=== PATIENT | female | born 1965 | race African-American/Black ===

== ENCOUNTER 2016-10-27 03:45 | Emergency (ER) | payer BC, OTHER ==
--- NOTE | 2016-10-27 03:51 | PDOC ---
History of Present Illness - General Chief Complaint: Back Pain Stated Complaint: BACK PAIN Time Seen by Provider: 10/27/16 03:51 History Source: Patient Exam Limitations: No Limitations - History of Present Illness Initial Comments: 10/27/16 03:58 This is a 51-year-old female comes in complaining of moderately severe mid back pain. Patient said she has been working out a lot and thinks that may have triggered the pain. Patient denies history of similar pain in the past. Patient denies any numbness or weakness. Patient denies any radiation down her legs. Patient otherwise says that she took Motrin 2 tablets without relief. PAST MEDICAL HISTORY: no significant history PAST SURGICAL HISTORY: no significant history FAMILY HISTORY: no pertinant history SOCIAL HISTORY: Pt lives with family and is employed. MEDICATIONS: reviewed ALLERGIES: As per nursing notes Review of Systems General: No fevers or chills, no weakness, no weight loss HEENT: No change in vision. No sore throat,. No ear pain CardioVascular: No chest pain or shortness of breath Respiratory:No cough, or wheezing. Gastrointestinal: no nausea, vomitting, diarrhea or constipation, No rectal bleeding Genitourinary: No dysuria, hematuria, or frequency Musculoskeletal: No joint or muscle pain or swelling Neurologic: No headache, vertigo, dizziness or loss of consciousness Psychiatric: nor depression Skin: No rashes or easy bruising Endocrine: no increased thirst or abnormal weight change Allergic: no skin or latex allergy All other systems reviewed and normal GENERAL: The patient is awake, alert, and fully oriented, in no acute distress. HEAD: Normal with no signs of trauma. EYES: Pupils equal, round and reactive to light, extraocular movements intact, sclera anicteric, conjunctiva clear. Back: There is pain and spasm on palpation of the right mid back paraspinal area. EXTREMITIES: Normal range of motion, no edema. NEUROLOGICAL: Normal speech, normal gait. PSYCH: Normal mood, normal affect. SKIN: Warm, Dry, normal turgor, no rashes or lesions noted. Assessment and plan: This is a year-old female with new-onset O mid back pain likely secondary to her at the gym. Patient was told to rest and given Toradol and Flexeril here in the emergency room. Patient also given prescriptions for Naprosyn and Flexeril. Patient discharged will follow-up with her primary care DrAdriano if not better in one week. Past History - Past Medical History Allergies/Adverse Reactions: Allergies Allergy/AdvReac Type Severity Reaction Status Date / Time No Known Allergies Allergy Verified 07/31/14 16:24 Home Medications: Ambulatory Orders Atorvastatin Ca [Lipitor] 40 mg PO DAILY 02/15/12 Verapamil HCl 300 mg PO DAILY 02/15/12 Cyclobenzaprine HCl [Flexeril 10 mg] 10 mg PO BID PRN #60 tablet 10/27/16 Naproxen [Naprosyn -] 500 mg PO BID #60 tablet 10/27/16 Cardiac Disorders: Yes (MVP) HTN: Yes Hypercholesterolemia: Yes - Surgical History Abdominal Surgery: Yes (BTL, HERNIA REPAIR) - Immunization History Immunization Up to Date: No - Psycho/Social/Smoking Cessation Hx Anxiety: No Suicidal Ideation: No Smoking Status: Yes Smoking History: Never smoked Have you smoked in the past 12 months: No Number of Cigarettes Smoked Daily: 0 Hx Alcohol Use: No Drug/Substance Use Hx: No Substance Use Type: None *DC/Admit/Observation/Transfer Diagnosis at time of Disposition: Back pain Qualifiers: Back pain location: back pain in unspecified location Chronicity: acute Back pain laterality: right Qualified Code(s): M54.9 - Dorsalgia, unspecified - Discharge Dispostion Disposition: HOME Condition at time of disposition: Good - Prescriptions Prescriptions: Cyclobenzaprine HCl [Flexeril 10 mg] 10 mg PO BID PRN #60 tablet PRN Reason: Back Pain Naproxen [Naprosyn -] 500 mg PO BID #60 tablet - Patient Instructions Additional Instructions: For the pain take Naprosyn 1 tablet twice a day with food don't take on an empty stomach. In addition to the Naprosyn take Flexeril one tablet twice a day. The Flexeril will make you drowsy so do not take it if you have to work, drive or do anything that requires your concentration. Return to the emergency department immediately with ANY new, persistent or worsening symptoms. Continue any medications as previously prescribed by your physician. You should follow up with your primary doctor if you are not better in one week . Please make sure your doctor reviews the results of your emergency evaluation. Thank you for coming to the Emergency Department today for your care. It was a pleasure to see you today. Please note that your evaluation is INCOMPLETE until you follow-up with your doctor.
[2016-10-27 03:52] VITALS: BP 137/88; PULSE 59; TEMP 98; BMI 26.6
[2016-10-27] MEDS ORDERED: KETOROLAC TROMETHAMINE 60 MG/2 ML VIAL ONE (03:55)
[2016-10-27] MEDS ORDERED: CYCLOBENZAPRINE HCL 10 MG TABLET (FP) PO ONE (03:55)
[2016-10-27] MEDS ORDERED: CYCLOBENZAPRINE HCL 10 MG TABLET (FP) ONE (03:55)
[2016-10-27] MEDS ORDERED: KETOROLAC TROMETHAMINE 60 MG/2 ML VIAL IM ONE (03:55)
== END 2016-10-27 04:06 | disposition home or self-care (01) ==
LOC: FER 03:45
PROC: 3E0233Z Introduction of Anti-inflammatory into Muscle, Percutaneous Approach (ICD-10-PCS; principal; 2016-10-27)
DX: M54.9 Dorsalgia, unspecified (principal); I10 Essential (primary) hypertension; E78.00 Pure hypercholesterolemia, unspecified; I34.1 Nonrheumatic mitral (valve) prolapse
CPT/HCPCS: 99282-25

== ENCOUNTER 2016-12-01 09:03 | Emergency (ER) | payer BC, OTHER ==
[2016-12-01 09:13] VITALS: BP 146/74; PULSE 68; TEMP 98; BMI 33.8
--- NOTE | 2016-12-01 10:18 | PDOC ---
History of Present Illness - General Chief Complaint: Foreign Body (FB) Stated Complaint: RING STUCK ON FINGER Time Seen by Provider: 12/01/16 09:39 - History of Present Illness Initial Comments: 12/01/16 10:16 CHIEF COMPLAINT: HISTORY OF PRESENT ILLNESS: No recent travel or sick contacts. PAST MEDICAL HISTORY: Denies past medical history FAMILY HISTORY: Denies SOCIAL HISTORY: Lives at home with ____. Occupation: . Denies tobacco, alcohol, illicit drug use. SURGICAL HISTORY: Denies ALLERGIES: No known drug allergies REVIEW OF SYSTEMS General/Constitutional: Denies fever or chills. Denies weakness, weight change. HEENT: Denies change in vision. Denies ear pain or discharge. Denies sore throat. Cardiovascular: Denies chest pain or shortness of breath. Respiratory: Denies cough, wheezing, or hemoptysis. Gastrointestinal: Denies nausea, vomiting, diarrhea or constipation. Denies rectal bleeding. Genitourinary: Denies dysuria, frequency, or change in urination. Musculoskeletal: Denies joint or muscle swelling or pain. Denies neck or back pain. Skin and breasts: Denies rash or easy bruising. Neurologic: Denies headache, vertigo, loss of consciousness, or loss of sensation. Psychiatric: Denies depression or anxiety. Endocrine: Denies increased thirst. Denies abnormal weight change. Hematologic/Lymphatic: Denies anemia, easy bleeding, or history of blood clots. Allergic/Immunologic: Denies hives or skin allergy. Denies latex allergy. PHYSICAL EXAM General Appearance: Well-appearing, appropriately dressed. No apparent distress , no intoxication. HEENT: EOMI, PERRLA, normal ENT inspection, normal voice, TMs normal, pharynx normal. No conjunctival pallor. No photophobia, scleral icterus. Neck: Supple. Trachea midline. No tenderness, rigidity, carotid bruit, stridor , lymphadenopathy, or thyromegaly. Respiratory/Chest: Lungs CTAB. No shortness of breath, chest tenderness, respiratory distress, accessory muscle use. No crackles, rales, rhonchi, stridor , wheezing, dullness Cardiovascular: RRR. S1, S2. No JVD, murmur, bradycardia, tachycardia. Vascular Pulses: Dorsalis-Pedis (R): 2+, Dorsalis-Pedis (L): 2+ Gastrointestinal/Abdominal: Normal bowel sounds. Abdomen soft, non-distended. No tenderness or rebound tenderness. No organomegaly, pulsatile mass, guarding , hernia, hepatomegaly, splenomegaly. Lymphatic: No adenopathy, tenderness. Musculoskeletal/Extremities: Normal inspection. FROM of all extremities, normal capillary refill. Pelvis Stable. No CVA tenderness. No tenderness to extremities, pedal edema, swelling, erythema or deformity. Integumentary: Appropriate color, dry, warm. No cyanosis, erythema, jaundice or rash Neurologic: environmental communications specialist II-XII intact. Fully oriented, alert. Appropriate mood/affect. Motor strength 5/5. No appreciable EOM palsy, facial droop or sensory deficit. Past History - Past Medical History Allergies/Adverse Reactions: Allergies Allergy/AdvReac Type Severity Reaction Status Date / Time No Known Allergies Allergy Verified 12/01/16 09:11 Home Medications: Ambulatory Orders NK [No Known Home Medication] 12/01/16 Cardiac Disorders: Yes (MVP) HTN: Yes Hypercholesterolemia: Yes - Surgical History Abdominal Surgery: Yes (BTL, HERNIA REPAIR) - Immunization History Immunization Up to Date: No - Psycho/Social/Smoking Cessation Hx Anxiety: No Suicidal Ideation: No Smoking Status: Yes Smoking History: Former smoker Have you smoked in the past 12 months: No Number of Cigarettes Smoked Daily: 0 If you are a former smoker, when did you quit?: 2005 Information on smoking cessation initiated: No Hx Alcohol Use: No Drug/Substance Use Hx: No Substance Use Type: None *Physical Exam - Vital Signs Last Vital Signs Temp Pulse Resp BP Pulse Ox 98.0 F 68 18 146/74 100 12/01/16 09:11 12/01/16 09:11 12/01/16 09:11 12/01/16 09:11 12/01/16 09:11 *DC/Admit/Observation/Transfer Diagnosis at time of Disposition: Tight ring on finger - Discharge Dispostion Disposition: HOME Condition at time of disposition: Improved - Referrals Referrals: Steve Nolasco MD [Primary Care Provider] - - Patient Instructions Additional Instructions: Please do not put your ring back on your finger until it has been sized appropriately. If your finger continues to swell, becomes more painful, or becomes red or warm, please return to the ER.
== END 2016-12-01 10:26 | disposition home or self-care (01) ==
LOC: JERFT 09:03
DX: S60.449A External constriction of unspecified finger, initial encounter (principal); W49.04XA Ring or other jewelry causing external constriction, initial encounter; Y93.89 Activity, other specified; Y92.038 Other place in apartment as the place of occurrence of the external cause
CPT/HCPCS: 99281-25

== ENCOUNTER 2019-11-16 19:43 | Emergency (ER) | payer BC, OTHER ==
[2019-11-16 19:55] VITALS: BP 154/90; PULSE 66; TEMP 97.2; BMI 34.7
[2019-11-16] MEDS ORDERED: IBUPROFEN 600 MG TABLET (FP) PO ONE ×2 (20:05→20:20)
--- NOTE | 2019-11-16 20:08 | PDOC ---
History of Present Illness - General Chief Complaint: Back Pain Stated Complaint: FALL Time Seen by Provider: 11/16/19 20:00 History Source: Patient Exam Limitations: No Limitations - History of Present Illness Initial Comments: 11/16/19 20:06 CHIEF COMPLAINT: Lower back pain HISTORY OF PRESENT ILLNESS: 54-year-old female denies medical history presents emergency department for evaluation of left wrist, left shoulder, left hip and left lower back pain status post slip and fall while in a supermarket today. Patient reports after she slipped she noticed that the floor was wet. She reports slipping feet first falling backwards landing on an outstretched left arm and onto her left hip. She reports initially she had minimal pain but as time is gone on the pain has gotten worse. She has not taken anything for the pain at this time. She reports the pain is nonradiating and has no neurosensory deficits. Patient denies any incontinence of bladder or bowel, urinary ret ention, saddle anesthesia, foot drop, history of IV drug use or history of cancer. REVIEW OF SYSTEMS: GENERAL: Afebrile, denies any weakness RESPIRATORY: No cough, wheezing, or hemoptysis. CARDIAC: No chest pain or shortness of breath MUSCULOSKELETAL: See HPI SKIN : No erythema, no bruising, no deformity. GI/: Denies any abdominal pain, no urinary difficulty, incontinence or urinary retention. RECTAL: Denies any difficulty this A.m. NEUROLOGICAL: Denies any numbness or tingling. No neurosensory deficits. PHYSICAL EXAM: GENERAL: The patient is awake, alert, and fully oriented, in no acute distress. RESPIRATORY: Lungs clear bilaterally, no rhonchi wheezes or crackles CARDIAC: S1-S2 audible, no murmur rub or gallop MUSCULOSKELETAL: Pain to generalized lower back, nonradiating, no tingling or sensory deficit. Less than 2 second cap refill, +2 pedal pulses. No spinal point tenderness. Normal reflexive and no deficits to sensation or strength. No bony tenderness, deformity, crepitus or step-off to the left shoulder, humerus, elbow, forearm, wrist or hand. Neurovascularly intact. GI/: Abdomen soft, nontender, nondistended. No rebound tenderness. No masses palpable. RECTAL: Deferred patient with no neurological findings SKIN: Warm, Dry, normal turgor, no erythema, no edema no bruising. Past History - Medical History Allergies/Adverse Reactions: Allergies Allergy/AdvReac Type Severity Reaction Status Date / Time No Known Allergies Allergy Verified 12/01/16 09:11 Home Medications: Ambulatory Orders NK [No Known Home Medication] 12/01/16 Cardiac Disorders: Yes (MVP, HEART MURMUR) COPD: No HTN: Yes Hypercholesterolemia: Yes - Surgical History Abdominal Surgery: Yes (BTL, HERNIA REPAIR) - Immunization History Immunization Up to Date: No - Psycho-Social/Smoking History Smoking Status: Yes Smoking History: Never smoked Have you smoked in the past 12 months: No Number of Cigarettes Smoked Daily: 0 If you are a former smoker, when did you quit?: 2005 *Physical Exam - Vital Signs Last Vital Signs Temp Pulse Resp BP Pulse Ox 97.2 F L 66 20 154/90 98 11/16/19 19:52 11/16/19 19:52 11/16/19 19:52 11/16/19 19:52 11/16/19 19:52 ED Treatment Course - RADIOLOGY Radiology Studies Ordered: Category Date Time Status HIP & PELVIS-LEFT [RAD] Stat Radiology 11/16/19 20:05 Ordered SHOULDER-LEFT [RAD] Stat Radiology 11/16/19 20:05 Ordered WRIST W/HAND-LEFT* [RAD] Stat Radiology 11/16/19 20:05 Ordered Medical Decision Making - Medical Decision Making 11/16/19 20:08 A/P: 54-year-old woman with multiple complaints of left-sided body injury status post slip and fall in supermarket Physical exam is unremarkable X-rays Motrin 600 mg orally now Reassess 11/16/19 20:57 X-rays as read by me: No acute fractures or dislocations present on left hand and wrist x-ray, left shoulder x-ray and left hip and pelvis x-rays. Discharge home with orthopedic follow-up I discussed the physical exam findings, ancillary test results and final diagnoses with the patient. I answered all of the patient's questions. The patient was satisfied with the care received and felt comfortable with the discharge plan and treatment plan. The patient will call their primary care physician within 24 hours to arrange follow-up and will return to the Emergency Department with any new, persistent or worsening symptoms. Portions of this note have been documented using voice recognition software. As a result, errors may occur in the manager of administration process. Effort has been made to correct all grammatical and manager of administration error, but some may have been missed which may produce sporadic inaccurate manager of administration or nonsensical phrases. Discharge - Discharge Information Problems reviewed: Yes Clinical Impression/Diagnosis: Wrist pain, left, Left hip pain Fall Qualifiers: Encounter type: initial encounter Qualified Code(s): W19.XXXA - Unspecified fall, initial encounter Left shoulder pain Qualifiers: Chronicity: acute Qualified Code(s): M25.512 - Pain in left shoulder Lower back pain Qualifiers: Chronicity: acute Back pain laterality: left Sciatica presence: without sciatica Qualified Code(s): M54.5 - Low back pain Condition: Stable Disposition: HOME - Admission No - Follow up/Referral Referrals: Jace Quintana MD [Staff Physician] - - Patient Discharge Instructions Additional Instructions: [email or web address] You be given a referral for an orthopedist. Call to schedule appointment for reevaluation of your pain. Your emergency department visit is incomplete until you follow-up with your regular doctor. Take Tylenol 2-500 mg tablets every 6 hours as needed for pain. Take Motrin 3-200 mg tablets every 6 hours as needed for pain. These medications do not require a prescription as they are [id number]. Apply ice to affected areas to help relieve pain. Do not leave ice on for more than 20 minutes at a time. You may require further imaging as an outpatient. This can be done by the orthopedist or your primary doctor. Return to the emergency department for any new or worsening symptoms. Thank you very much for choosing us to provide your emergent health care needs. - Post Discharge Activity Work/Back to School Note: Back to Work
== END 2019-11-16 21:13 | disposition home or self-care (01) ==
LOC: JERFT 19:43
DX: M25.512 Pain in left shoulder (principal); M54.5 Low back pain; W19.XXXA Unspecified fall, initial encounter
CPT/HCPCS: 73030-TC-LT-FY; 73110-TC-LT-FY; 73130-TC-LT-FY; 73523-TC-FY; 99284-25

== ENCOUNTER → 2021-12-08 | Day surgery (SDC) | payer OTHER, BC | END | disposition home or self-care (01) | LOC: JRADUS-SUR 11:55 | PROVIDERS: ATTEND Internal Medicine Geriatric Medicine | PROC: 0H9T3ZX Drainage of Right Breast, Percutaneous Approach, Diagnostic (ICD-10-PCS; principal; 2021-12-08) | DX: N60.12 Diffuse cystic mastopathy of left breast (principal) | CPT/HCPCS: 19083; 77065-TC; 87899; 88305-TC; A4648 ==

== ENCOUNTER 2023-03-17 19:36 | Emergency (ER) | payer BC, OTHER ==
[2023-03-17 19:46] VITALS: BP 146/79; PULSE 88; RESP 18; TEMP 99.1; BMI 35.0
== END 2023-03-17 20:13 | disposition home or self-care (01) ==
LOC: FER 19:36
DX: R05.9 Cough, unspecified (principal); R09.81 Nasal congestion; R50.9 Fever, unspecified; R09.3 Abnormal sputum; J40 Bronchitis, not specified as acute or chronic
CPT/HCPCS: 99283-25